=== PATIENT | female | born 1985 | race Two or more races ===

== ENCOUNTER 2024-10-11 09:26 | Emergency (ER) | payer MEDICAID, SELFPAY ==
[2024-10-11 09:26] VITALS: BMI 30.2
[2024-10-11 09:37] VITALS: BP 138/86; PULSE 77; RESP 18; TEMP 36.8; O2SAT 100
--- NOTE | 2024-10-11 10:21 | EDNOTE_ITS ---
<Statement entered by Jennifer Reed MD - 10/22/24 19:24> As co-signing physician, I was present and available for consult prn. I concur with the plan and care as documented by the midlevel provider. Upper Respiratory Inf. RME/HPI General Chief Complaint: Flu Like Symptoms Stated Complaint: FLU SYMPTOMS SINCE YESTERDAY Time Seen by Provider: 10/11/24 09:45 Arrival date/time: 10/11/24 09:26 This is a 39-year-old female that comes in with complaints of chills, sore throat, runny nose, and cough that started yesterday. Patient was seen by primary provider and was put on Keflex for strep throat. Patient wanted to be tested for influenza and COVID. 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 Related Data Home Medications ?Medication ?Instructions ?Recorded ?Confirmed Vitamin * 1 tab PO QDAY #0 tabs Vitamin * 1 tab PO QDAY #0 t abs 02/09/16 iron 18 mg tablet 18 mg PO BIDWM #0 tabs 02/09/16 Previous Rx's ?Medication ?Instructions ?Recorded amoxicillin 500 mg capsule 500 cap PO Q8HR Infection # 21 caps 08/11/15 Cyclobenzaprine * (FLEXERIL *) 10 mg PO TID PRN spasm #9 tabs 07/13/16 triamcinolone acetonide 0.1 % 1 applic topical BID #15 grams 03/24/22 topical cream ibuprofen 800 mg tablet 800 mg PO Q6H PRN pain #20 t abs 10/11/24 Allergies Allergy/AdvReac Type Severity Reaction Status Date / Time No Known Allergies Allergy Verified 10/11/24 09:30 Review of Systems Review of Systems Systems Reviewed: All systems reviewed, normal except as documented Past Medical History Social History SMOKING STATUS: Never smoker Travel History EBOLA RISK: No ED Exam General General appearance: Present alert and in no apparent distress Head Head exam: Present atraumatic Eye Eye exam: Present normal appearance, PERRL and EOMI ENT ENT exam: Present normal exam, normal oropharynx and mucous membranes moist Neck Neck exam: Present normal inspection, full ROM and trachea midline Chest Chest inspection: Present normal inspection and symmetric chest wall rise Respiratory Respiratory exam: Present normal lung sounds bilaterally Cardiovascular Cardiovascular exam: Present regular rate, normal rhythm and normal heart sounds Abdominal Exam Abdominal exam: Present soft Extremities Exam Extremities exam: Present normal inspection and full ROM Back Exam Back exam: Present normal inspection and full ROM Neurological Exam Neurological exam: Present alert, oriented X3 and CN II-XII intact Psychiatric Psychiatric exam: Present normal affect and normal mood Skin Skin exam: Present warm, dry, intact and normal color Course Quality Measures none Orders Category Date Time Status Acetaminophen Tab [Tylenol ES Tab] Med 10/11/24 10:01 Discontinued 1,000 mg PO X1 ONE Ibuprofen Tab [Motrin Tab] Med 10/11/24 10:01 Discontinued 800 mg PO X1 ONE Vital Signs Vital signs: Vital Signs Temperature 98.2 F 10/11/24 09:37 Pulse Rate 77 10/11/24 09:37 Respiratory Rate 18 10/11/24 09:37 Blood Pressure 138/86 H 10/11/24 09:37 Pulse Oximetry (%) 100 10/11/24 09:37 Oxygen Delivery Method Room Air 10/11/24 09:37 Upper Respiratory Infection MDM Narrative MDM Narrative:: COVID and influenza negative. Will treat with supportive measures like Tylenol and ibuprofen. Patient told to follow-up with primary provider in 1 to 2 days. Come back to the emergency room if symptoms change or worsen. Patient data External records reviewed:: [facility] previous records Clinical information provided by:: patient Social determinants that could affect healthcare access:: none Patient has the following chronic illnesses:: none How is presenting disease/condition affected by chronic disease/condition?: no chronic disease Evaluation data The following diagnostics were reviewed and interpreted by me:: lab results Lab and/or radiology exams considered but not ordered:: none Interpretation Summary: see note Medications / Prescriptions Medications or Prescriptions considered but not ordered:: none Medication administrations:: Medication Administration History Discontinued Medications Acetaminophen (Acetaminophen 500 Mg Tablet) 1,000 mg PO X1 ONE Stop: 10/11/24 10:02 Last Admin: 10/11/24 10:45 Dose: 1,000 mg Documented By: ORTIZ Ibuprofen (Ibuprofen Tab 400 Mg Tablet) 800 mg PO X1 ONE Stop: 10/11/24 10:02 Last Admin: 10/11/24 10:46 Dose: 800 mg Documented By: ORTIZ see [facility] Consultations Consultation(s) initiated? (list below): No Diagnosis Upper Respiratory Differential Diagnosis: upper respiratory infection, otitis media, sinusitis, viral infection and influenza Most likely diagnosis given after review of the tests above:: uri Admission Indicated Admission indicated?: not indicated Admission Request Was there a request for admission?: No Disposition Plan Disposition Plan: Discharge Discharge Attestation Discharge Attestation: The patient and all family members were given an opportunity to ask questions and understood the discharge instructions. Discharge instructions specifically effects, indications for sooner follow up or return to the emergency department, and the expected course of current diagnosis. Patient condition: Stable Discharge Plan Plan Patient Disposition: HOME (Self Care) Patient condition on transfer: Stable Prescriptions/Referrals Prescriptions/Med Rec: New ibuprofen 800 mg tablet 800 mg PO Q6H PRN (Reason: pain) Qty: 20 0RF No Action Vitamin * 1 EACH tablet 1 tab PO QDAY Qty: 0 amoxicillin 500 MG capsule 500 cap PO Q8HR Qty: 21 0RF iron 18 MG tablet 18 mg PO BIDWM Qty: 0 Vitamin * 1 EACH tablet 1 tab PO QDAY Qty: 0 Cyclobenzaprine * (FLEXERIL *) 10 MG tablet 10 mg PO TID PRN (Reason: spasm) Qty: 9 0RF triamcinolone acetonide 0.1 % cream 1 applic topical BID Qty: 15 0RF Referrals: Mar Sánchez [facility] [Primary Care Provider] - In 1 week Problem List Clinical Impression: Upper respiratory infection, viral Patient/Caregiver Discharge Instructions Discharge Activity: activity as tolerated Education Materials: ED URI, Viral, No Abx (Adult) Additional Instructions: Today COVID and influenza negative. May take Tylenol and ibuprofen for pain and for fever. Follow-up with primary provider in 1 to 2 days. Come back to the emergency room if symptoms change or worsen Print Language: Polish Stand Alone Forms: [employer] Award Info., Work/School Release, Patient Portal Info Letter PA/LOLLY Supervising Physician DELIA/LOLLY Supervising Physician: JANNET
[2024-10-11] MEDS: ACETAMINOPHEN 500 MG TABLET 1000 MG PO (10:45)
[2024-10-11] MEDS: IBUPROFEN TAB 400 MG TABLET 800 MG PO (10:46)
== END 2024-10-11 10:47 | disposition home or self-care (01) ==
PROVIDERS: Emergency Provider Emergency Medicine; PCP Nurse Practitioner Family
DX: J06.9 Acute upper respiratory infection, unspecified (principal)
CPT/HCPCS: 87400; 87811; 99282; 99283; A9270

== ENCOUNTER 2024-11-23 19:08 | Emergency (ER) | payer MEDICAID, SELFPAY ==
[2024-11-23 19:09] VITALS: BMI 30.2
--- NOTE | 2024-11-23 19:11 | EDNOTE_ITS ---
ED Back Injury Pain RME/HPI General Chief Complaint: Back Pain/Injury Stated Complaint: LOWER BACK PAIN Time Seen by Provider: 11/23/24 19:10 Arrival date/time: 11/23/24 19:08 Mode of arrival: ambulatory Limitations: no limitations RME / HPI RME / HPI Narrative: 39-year-old female with no reported past medical history presents for evaluation of low back pain. She reports onset this morning at 0800 when she was mopping and bent over to change the water. She reports radiation of pain down her posterior right leg. She describes the pain as electrical, intermittent, and worse when sitting. She denies trauma, history of injury, bladder and bowel incontinence, fever, chills, neck pain, nausea, vomiting, hematuria, dysuria. Denies history of prior similar symptoms. She has not taken pain medication prior to arrival to the ED. MD Complaint: back pain Exacerbating factors: movement Context: bending Related Data Home Medications ?Medication ?Instructions ?Recorded ?Confirmed Vitamin * 1 tab PO QDAY #0 tabs Vitamin * 1 tab PO QDAY #0 t abs 02/09/16 iron 18 mg tablet 18 mg PO BIDWM #0 tabs 02/09/16 Previous Rx's ?Medication ?Instructions ?Recorded amoxicillin 500 mg capsule 500 cap PO Q8HR Infection # 21 caps 08/11/15 Cyclobenzaprine * (FLEXERIL *) 10 mg PO TID PRN spasm #9 tabs 07/13/16 triamcinolone acetonide 0.1 % 1 applic topical BID #15 grams 03/24/22 topical cream ibuprofen 800 mg tablet 800 mg PO Q6H PRN pain #20 t abs 10/11/24 cyclobenzaprine 5 mg tablet 5 mg PO TID PRN muscle spa sm #14 11/23/24 tabs naproxen 250 mg tablet 250 mg PO BID 14 days #28 ta bs 11/23/24 Allergies Allergy/AdvReac Type Severity Reaction Status Date / Time No Known Allergies Allergy Verified 11/23/24 19:09 Review of Systems Constitutional Constitutional: Denies fever(s), Denies headache(s) and Denies weakness Eyes Eyes: Denies change in vision ENT Ears, Nose, Mouth, and Throat: Denies headache(s) and Denies neck pain Cardiovascular Cardiovascular: Denies chest pain, Denies dyspnea and Denies leg edema Respiratory Respiratory: Denies cough and Denies dyspnea Gastrointestinal Gastrointestinal: Denies nausea and Denies vomiting Genitourinary Genitourinary: Denies dysuria and Denies hematuria Musculoskeletal Musculoskeletal: Reports abnormal gait, Reports back pain, Denies joint swelling, Denies muscle weakness, Denies neck pain, Denies numbness, Reports radiating pain into limb, Denies stiffness and Denies tingling Integumentary/Breasts Skin/Breast: Denies rash Neurologic Neurologic: Reports abnormal gait, Denies localized weakness, Denies headache(s), Denies numbness, Denies tingling and Denies weakness Past Medical History Social History SMOKING STATUS: Never smoker ED Exam General Limitations: Present no limitations General appearance: Present alert and in no apparent distress Head Head exam: Present atraumatic and normocephalic Eye Eye exam: Present normal appearance, PERRL and EOMI Neck Neck exam: Present normal inspection and full ROM Expanded Neck Exam Neck exam focused ED: Absent midline tenderness or paraspinal tenderness Chest Chest inspection: Present normal inspection and symmetric chest wall rise Respiratory Respiratory exam: Absent respiratory distress Cardiovascular Cardiovascular exam: Present regular rate and normal heart sounds Abdominal Exam Abdominal exam: Present soft; Absent distention Extremities Exam Extremities exam: Present normal inspection and full ROM Back Exam Back exam: Present muscle spasm, paraspinal tenderness, sciatic notch tenderness (R) and straight leg raise (R); Absent vertebral tenderness or sciatic notch tenderness (L) Neurological Exam Neurological exam: Present alert and oriented X3 Psychiatric Psychiatric exam: Present normal affect Skin Skin exam: Present warm and dry Course Quality Measures none Orders Category Date Time Status CYCLObenzaPRINE [Flexeril] Med 11/23/24 20:12 Discontinued 5 mg PO X1 ONE Gabapentin Med 11/23/24 20:12 Discontinued 100 mg PO X1 ONE Ketorolac Inj [Toradol Inj] Med 11/23/24 20:12 Discontinued 30 mg IM X1 ONE Vital Signs Vital signs: Vital Signs Temperature 98.7 F 11/23/24 19:20 Pulse Rate 85 11/23/24 19:20 Respiratory Rate 18 11/23/24 19:20 Blood Pressure 171/91 H 11/23/24 19:20 Pulse Oximetry (%) 100 11/23/24 19:20 Oxygen Delivery Method Room Air 11/23/24 19:20 Pulse ox 100% on room air, within normal limits. Back Pain / Injury MDM Narrative MDM Narrative:: 39-year-old female presented with acute onset low back pain with radicular pain down posterior right leg x 1 day. Vital signs stable. No neurodeficits on exam and positive straight leg raise. Clinical picture does not fit with cauda equina. Emergent MRI deferred at this time. No midline tenderness therefore less concern for atraumatic fracture. More likely strain of lumbar region for which patient was given antispasmodic and analgesics in the department with improvement in her symptoms. She was discharged with a short course of NSAID and antispasmodic. Ultimately the patient was discharged with plan to follow-up with primary care within the week for reevaluation and further assessment. Patient stable time discharge. Patient data External records reviewed:: [facility] previous records Clinical information provided by:: patient Social determinants that could affect healthcare access:: none Patient has the following chronic illnesses:: None reported. How is presenting disease/condition affected by chronic disease/condition?: no chronic disease Evaluation data The following diagnostics were reviewed and interpreted by me:: other (specify) Lab and/or radiology exams considered but not ordered:: Considered not ordered. Interpretation Summary: Considered not ordered. Medications / Prescriptions Medications or Prescriptions considered but not ordered:: Rx given. Medication administrations:: Medication Administration History Discontinued Medications Cyclobenzaprine HCl (Cyclobenzaprine 5 Mg Tablet) 5 mg PO X1 ONE Stop: 11/23/24 20:13 Last Admin: 11/23/24 20:18 Dose: 5 mg Documented By: HONEY Gabapentin (Gabapentin 100 Mg Capsule) 100 mg PO X1 ONE Stop: 11/23/24 20:13 Last Admin: 11/23/24 20:18 Dose: 100 mg Documented By: HONEY Ketorolac Tromethamine (Ketorolac Inj 60 Mg/2 Ml Vial) 30 mg IM X1 ONE Stop: 11/23/24 20:13 Last Admin: 11/23/24 20:34 Dose: Not Given Documented By: HONEY Non-Admin Reason: Cancelled by Provider Rx given. Consultations Consultation(s) initiated? (list below): No Diagnosis Differential diagnosis back pain/injury: lumbar radiculopathy, sciatica, strain of lumbar region, renal colic, thoracic back pain, discitis and other Most likely diagnosis given after review of the tests above:: Strain of lumbar region, by lumbar radiculopathy. Admission Indicated Admission indicated?: not indicated Admission Request Was there a request for admission?: No Disposition Plan Disposition Plan: Discharge Discharge Attestation Discharge Attestation: The patient and all family members were given an opportunity to ask questions and understood the discharge instructions. Discharge instructions specifically effects, indications for sooner follow up or return to the emergency department, and the expected course of current diagnosis. Patient condition: Stable Discharge Plan Plan Patient Disposition: HOME (Self Care) Disposition Comment: stable Prescriptions/Referrals Prescriptions/Med Rec: New cyclobenzaprine 5 mg tablet 5 mg PO TID PRN (Reason: muscle spasm) Qty: 14 0RF naproxen 250 mg tablet 250 mg PO BID 14 Days Qty: 28 0RF Rx Instructions: Take twice daily for the next x 14 days for acute lumbosacral radiculopathy. No Action Vitamin * 1 EACH tablet 1 tab PO QDAY Qty: 0 amoxicillin 500 MG capsule 500 cap PO Q8HR Qty: 21 0RF iron 18 MG tablet 18 mg PO BIDWM Qty: 0 Vitamin * 1 EACH tablet 1 tab PO QDAY Qty: 0 Cyclobenzaprine * (FLEXERIL *) 10 MG tablet 10 mg PO TID PRN (Reason: spasm) Qty: 9 0RF triamcinolone acetonide 0.1 % cream 1 applic topical BID Qty: 15 0RF ibuprofen 800 mg tablet 800 mg PO Q6H PRN (Reason: pain) Qty: 20 0RF Referrals: No Primary/Family,Physician [Primary Care Provider] - In 1 week Problem List Clinical Impression: Low back pain, Lumbar radiculopathy, Strain of lumbar region Patient/Caregiver Discharge Instructions Other Activity Instructions:: Take naproxen twice daily for the next x 14 days for likely sciatica. Take Flexeril as needed for back spasm. Follow-up with primary care doctor within the next week for reevaluation. Rest and use caution when bending at the low back. Return to the ED if your symptoms worsen or change. Education Materials: ED Back Pain (Acute or Chronic), ED Sciatica Print Language: Urdu Stand Alone Forms: [employer] Award Info., Patient Portal Info Letter PA/LOLLY Supervising Physician PA/LOLLY Supervising Physician: Dr. Montenegro
[2024-11-23 19:20] VITALS: BP 171/91; PULSE 85; RESP 18; TEMP 37.1; O2SAT 100
[2024-11-23] MEDS: GABAPENTIN 100 MG CAPSULE PO (20:18)
[2024-11-23] MEDS: CYCLObenzaPRINE 5 MG TABLET PO (20:18)
== END 2024-11-23 20:35 | disposition home or self-care (01) ==
PROVIDERS: Emergency Provider Emergency Medicine
DX: S39.012A Strain of muscle, fascia and tendon of lower back, initial encounter (principal); M51.17 Intervertebral disc disorders with radiculopathy, lumbosacral region; X50.1XXA Overexertion from prolonged static or awkward postures, initial encounter; Y93.E5 Activity, floor mopping and cleaning
CPT/HCPCS: 99282; A9270